=== PATIENT | male | born 1955 | race Caucasian/White ===

== ENCOUNTER → 2017-08-16 | Outpatient (CLI) | payer BC ==
[2013-07-27 18:13] VITALS: BP 126/78
[~2017-08-16] MED LIST: BLOOD PRESSURE; CEPHALEXIN500 M1 PO
[2017-08-16 10:35] LABS: HEMATOCRIT 43.2 % (42.0-52.0); HEMOGLOBIN 14.4 g/dL (13.5-18.0); MEAN PLATELET VOLUME 9.4 fl (7.4-10.4); RED BLOOD COUNT 4.92 M/mm3 (4.20-5.60); RED CELL DISTRIBUTION WIDTH 13.6 % (11.5-14.5); WHITE BLOOD COUNT 8.3 K/mm3 (4.8-10.8)
[2017-08-16 10:51] LABS: ALBUMIN 4.3 g/dL (3.5-5.0); BUN/CREATININE RATIO 15.7 (6.0-26.0); CALCIUM 9.5 mg/dL (8.4-10.2); POTASSIUM 4.1 mmol/L (3.6-5.0); TOTAL BILIRUBIN 0.8 mg/dL (0.2-1.3); TOTAL PROTEIN 7.5 g/dL (6.3-8.2)
== END ==
LOC: LAB 10:25
PROVIDERS: Family Medicine
DX: I10 Essential (primary) hypertension (principal)

== ENCOUNTER → 2018-08-28 | Outpatient (CLI) | payer BC ==
[2013-07-27 18:13] VITALS: BP 126/78
[2018-08-28 07:31] LABS: HEMATOCRIT 44.4 % (42.0-52.0); HEMOGLOBIN 14.9 g/dL (13.5-18.0); MEAN PLATELET VOLUME 9.5 fl (7.4-10.4); RED BLOOD COUNT 5.07 M/mm3 (4.20-5.60); RED CELL DISTRIBUTION WIDTH 13.5 % (11.5-14.5); WHITE BLOOD COUNT 7.8 K/mm3 (4.8-10.8)
[2018-08-28 07:55] LABS: ALBUMIN 4.4 g/dL (3.5-5.0); CALCIUM 9.2 mg/dL (8.4-10.2); POTASSIUM 3.8 mmol/L (3.6-5.0); TOTAL BILIRUBIN 0.7 mg/dL (0.2-1.3); TOTAL PROTEIN 7.6 g/dL (6.3-8.2)
== END ==
LOC: LAB 07:18
PROVIDERS: Family Medicine
DX: I10 Essential (primary) hypertension (principal); N40.0 Benign prostatic hyperplasia without lower urinary tract symptoms

== ENCOUNTER → 2019-11-05 | Outpatient (CLI) | payer MEDICARE, BC ==
[2013-07-27 18:13] VITALS: BP 126/78
[2019-11-05 08:30] LABS: ALBUMIN 4.2 g/dL (3.4-4.8); POTASSIUM 3.8 mmol/L (3.5-5.1)
[2019-11-05 08:33] LABS: TOTAL PROTEIN 7.3 g/dL (6.2-8.1)
[2019-11-05 08:34] LABS: TOTAL BILIRUBIN 0.7 mg/dL (0.2-1.2)
[2019-11-05 08:39] LABS: HEMATOCRIT 44.1 % (42.0-52.0); HEMOGLOBIN 14.3 g/dL (13.5-18.0); MEAN PLATELET VOLUME 10.3 fl (7.4-10.4); RED BLOOD COUNT 4.95 M/mm3 (4.20-5.60); WHITE BLOOD COUNT 6.8 K/mm3 (4.8-10.8)
== END ==
LOC: LAB 07:42
PROVIDERS: Family Medicine
DX: Z00.00 Encounter for general adult medical examination without abnormal findings (principal); I10 Essential (primary) hypertension; E74.39 Other disorders of intestinal carbohydrate absorption; N40.0 Benign prostatic hyperplasia without lower urinary tract symptoms; R73.02 Impaired glucose tolerance (oral)

== ENCOUNTER → 2020-02-12 | Outpatient (CLI) | payer MEDICARE, BC ==
[2013-07-27 18:13] VITALS: BP 126/78
== END ==
LOC: LAB 08:34
DX: E11.9 Type 2 diabetes mellitus without complications (principal)

== ENCOUNTER → 2020-03-10 | Outpatient (CLI) | payer MEDICARE, BC ==
[2013-07-27 18:13] VITALS: BP 126/78
[2020-03-10 12:21] LABS: HEMATOCRIT 41.9 % (42.0-52.0); HEMOGLOBIN 13.5 g/dL (13.5-18.0); MEAN PLATELET VOLUME 8.8 fl (7.4-10.4); RED BLOOD COUNT 4.69 M/mm3 (4.20-5.60); RED CELL DISTRIBUTION WIDTH 14.3 % (11.5-14.5); WHITE BLOOD COUNT 8.4 K/mm3 (4.8-10.8)
[2020-03-10 12:31] LABS: ALBUMIN 4.1 g/dL (3.4-4.8); POTASSIUM 4.4 mmol/L (3.5-5.1)
[2020-03-10 12:32] LABS: CALCIUM 9.4 mg/dL (8.3-10.5)
[2020-03-10 12:33] LABS: TOTAL PROTEIN 7.7 g/dL (6.2-8.1)
[2020-03-10 12:35] LABS: TOTAL BILIRUBIN 0.5 mg/dL (0.2-1.2)
== END ==
LOC: LAB 12:13
PROVIDERS: Family Medicine
DX: Z00.00 Encounter for general adult medical examination without abnormal findings (principal); I10 Essential (primary) hypertension; N40.0 Benign prostatic hyperplasia without lower urinary tract symptoms; E74.39 Other disorders of intestinal carbohydrate absorption

== ENCOUNTER → 2020-05-22 | Outpatient (CLI) | payer MEDICARE, BC ==
[2013-07-27 18:13] VITALS: BP 126/78
[2020-05-22 15:28] LABS: EOS # 0.1 (0.04-0.40); EOS % 0.9 % (0.0-4.0); HEMATOCRIT 41.3 % (42.0-52.0); HEMOGLOBIN 13.5 g/dL (13.5-18.0); LYMPH# 1.6 (1.50-4.00); MEAN CELL VOLUME 88 fl (78-100); MEAN CORPUSCULAR HEMOGLOBIN 29 pg (27-31); MEAN CORPUSCULAR HGB CONC 33 g/dL (33-37); MONO # 1.4 (0.20-0.80); PLATELET COUNT 215 K/mm3 (130-400); RED BLOOD COUNT 4.67 M/mm3 (4.20-5.60); RED CELL DISTRIBUTION WIDTH 14.4 % (11.5-14.5)
[2020-05-22 15:29] LABS: URINE APPEARANCE CLEAR; URINE BILIRUBIN NEGATIVE (NEGATIVE); URINE BLOOD TRACE (NEGATIVE); URINE COLOR YELLOW; URINE KETONE NEGATIVE (NEGATIVE); URINE LEUKOCYTE ESTERASE NEGATIVE (NEGATIVE); URINE NITRATE NEGATIVE (NEGATIVE); URINE PROTEIN(semi-quant) NEGATIVE (NEGATIVE); URINE UROBILINOGEN NORMAL (NORMAL)
[2020-05-22 15:29] LABS: NEU # 9.7 (1.40-6.50)
[2020-05-22 15:39] LABS: ALBUMIN 4.1 g/dL (3.4-4.8)
[2020-05-22 15:40] LABS: CALCIUM 9.6 mg/dL (8.3-10.5)
[2020-05-22 15:41] LABS: TOTAL PROTEIN 7.5 g/dL (6.2-8.1)
[2020-05-22 15:43] LABS: TOTAL BILIRUBIN 0.3 mg/dL (0.2-1.2)
== END ==
LOC: LAB 15:14
PROVIDERS: Physician Assistant
DX: R30.0 Dysuria (principal)

== ENCOUNTER → 2020-09-17 | Outpatient (CLI) | payer MEDICARE, BC ==
[2013-07-27 18:13] VITALS: BP 126/78
== END ==
LOC: LAB 07:53
DX: R97.20 Elevated prostate specific antigen [PSA] (principal)

== ENCOUNTER → 2021-01-27 | Outpatient (CLI) | payer MEDICARE, BC ==
[2013-07-27 18:13] VITALS: BP 126/78
== END ==
LOC: RAD 09:55
DX: M19.011 Primary osteoarthritis, right shoulder (principal)

== ENCOUNTER → 2021-02-03 | Outpatient (CLI) | payer MEDICARE, BC ==
[2013-07-27 18:13] VITALS: BP 126/78
[2021-02-03 10:04] LABS: BASO # 0.04 (0.02-0.10); EOS % 2.5 % (0.0-4.0); HEMATOCRIT 43.8 % (42.0-52.0); HEMOGLOBIN 14.7 g/dL (13.5-18.0); LYMPH# 2.18 (1.50-4.00); MEAN CELL VOLUME 88 fl (78-100); MEAN CORPUSCULAR HEMOGLOBIN 30 pg (27-31); MEAN CORPUSCULAR HGB CONC 34 g/dL (33-37); MEAN PLATELET VOLUME 9.4 fl (7.4-10.4); MONO # 0.84 (0.20-0.80); NEU # 4.69 (1.40-6.50); PLATELET COUNT 192 K/mm3 (130-400); RED BLOOD COUNT 4.99 M/mm3 (4.20-5.60); RED CELL DISTRIBUTION WIDTH 13.2 % (11.5-14.5)
[2021-02-03 10:13] LABS: ALBUMIN 4.3 g/dL (3.4-4.8)
[2021-02-03 10:16] LABS: TOTAL PROTEIN 7.4 g/dL (6.2-8.1)
[2021-02-03 10:18] LABS: TOTAL BILIRUBIN 0.8 mg/dL (0.2-1.2)
[2021-02-03 22:06] LABS: CREATININE OTHER SOURCE 7 mg/dL (())
== END ==
LOC: LAB 07:27
PROVIDERS: Family Medicine
DX: Z00.00 Encounter for general adult medical examination without abnormal findings (principal); Z12.5 Encounter for screening for malignant neoplasm of prostate; E11.9 Type 2 diabetes mellitus without complications; E78.5 Hyperlipidemia, unspecified

== ENCOUNTER → 2021-03-22 | Outpatient (CLI) | payer MEDICARE, BC | LOC: RAD 15:51 | DX: S46.011A Strain of muscle(s) and tendon(s) of the rotator cuff of right shoulder, initial encounter (principal) ==

== ENCOUNTER → 2021-04-05 | Outpatient (CLI) | payer MEDICARE, BC | LOC: PT 08:20 | DX: M25.511 Pain in right shoulder (principal) ==

== ENCOUNTER 2021-04-19 11:00 | Outpatient (RCR) | payer MEDICARE, BC | END 2021-07-18 | disposition home or self-care (01) | LOC: PT | DX: Z98.890 Other specified postprocedural states (principal) ==

== ENCOUNTER → 2021-09-23 | Outpatient (CLI) | payer MEDICARE, BC | LOC: LAB 11:40 | DX: R97.20 Elevated prostate specific antigen [PSA] (principal) ==

== ENCOUNTER → 2021-10-29 | Outpatient (CLI) | payer MEDICARE, BC | LOC: LAB 08:45 | DX: R97.20 Elevated prostate specific antigen [PSA] (principal) ==

== ENCOUNTER → 2022-02-25 | Outpatient (CLI) | payer MEDICARE, BC ==
[2022-02-25 11:38] LABS: BASO # 0.03 K/mm3 (0.02-0.10); EOS % 5.4 % (0.0-4.0); HEMATOCRIT 43.9 % (42.0-52.0); HEMOGLOBIN 14.4 g/dL (13.5-18.0); LYMPH# 1.72 K/mm3 (1.50-4.00); MEAN CELL VOLUME 89 fl (78-100); MEAN CORPUSCULAR HEMOGLOBIN 29 pg (27-31); MEAN CORPUSCULAR HGB CONC 33 g/dL (33-37); MEAN PLATELET VOLUME 9.5 fl (7.4-10.4); MONO # 0.74 K/mm3 (0.20-0.80); NEU # 4.46 K/mm3 (1.40-6.50); PLATELET COUNT 169 K/mm3 (130-400); RED BLOOD COUNT 4.96 M/mm3 (4.20-5.60); RED CELL DISTRIBUTION WIDTH 13.8 % (11.5-14.5); WHITE BLOOD COUNT 7.4 K/mm3 (4.8-10.8)
[2022-02-25 11:45] LABS: POTASSIUM 4.2 mmol/L (3.5-5.1)
[2022-02-25 11:47] LABS: ALBUMIN 4.4 g/dL (3.4-4.8)
[2022-02-25 11:49] LABS: TOTAL PROTEIN 7.5 g/dL (6.2-8.1)
[2022-02-25 11:51] LABS: TOTAL BILIRUBIN 0.5 mg/dL (0.2-1.2)
[2022-02-25 11:57] LABS: MAGNESIUM 2.27 mg/dL (1.60-2.60)
== END ==
LOC: LAB 11:18
PROVIDERS: Family Medicine
DX: Z00.00 Encounter for general adult medical examination without abnormal findings (principal); E78.5 Hyperlipidemia, unspecified; E11.9 Type 2 diabetes mellitus without complications; I10 Essential (primary) hypertension; N40.0 Benign prostatic hyperplasia without lower urinary tract symptoms; E66.9 Obesity, unspecified; M19.90 Unspecified osteoarthritis, unspecified site; L40.9 Psoriasis, unspecified; H93.13 Tinnitus, bilateral; E83.42 Hypomagnesemia; Z85.038 Personal history of other malignant neoplasm of large intestine

== ENCOUNTER → 2022-05-16 | Day surgery (SDC) | payer MEDICARE, BC | LOC: MSO 08:43 | DX: Z12.11 Encounter for screening for malignant neoplasm of colon (principal); Z86.16 Personal history of COVID-19 | CPT/HCPCS: G0121; 00812; J2704; J7120 ==

== ENCOUNTER → 2022-10-06 | Outpatient (CLI) | payer MEDICARE | LOC: LAB 10:16 | DX: R97.20 Elevated prostate specific antigen [PSA] (principal) ==

== ENCOUNTER → 2023-10-10 | Outpatient (CLI) | payer MEDICARE | LOC: LAB 10:13 | DX: R97.20 Elevated prostate specific antigen [PSA] (principal) ==

== ENCOUNTER → 2023-10-25 | Outpatient (CLI) | payer MEDICARE ==
[2023-10-25 11:22] LABS: BASO # 0.03 K/mm3 (0.02-0.10); EOS # 0.16 K/mm3 (0.04-0.40); EOS % 2.1 % (0.0-4.0); HEMATOCRIT 45.4 % (42.0-52.0); HEMOGLOBIN 14.9 g/dL (13.5-18.0); LYMPH# 1.79 K/mm3 (1.50-4.00); MEAN CELL VOLUME 90 fl (78-100); MEAN CORPUSCULAR HEMOGLOBIN 29 pg (27-31); MEAN CORPUSCULAR HGB CONC 33 g/dL (33-37); MEAN PLATELET VOLUME 9.3 fl (7.4-10.4); MONO # 0.66 K/mm3 (0.20-0.80); PLATELET COUNT 210 K/mm3 (130-400); RED BLOOD COUNT 5.07 M/mm3 (4.20-5.60); WHITE BLOOD COUNT 7.8 K/mm3 (4.8-10.8)
[2023-10-25 11:26] LABS: ALBUMIN 4.5 g/dL (3.4-4.8); SODIUM 140 mmol/L (136-145)
[2023-10-25 11:27] LABS: CALCIUM 9.7 mg/dL (8.3-10.5)
[2023-10-25 11:28] LABS: GLUCOSE 119 mg/dL (75-110)
[2023-10-25 11:29] LABS: TOTAL PROTEIN 7.8 g/dL (6.2-8.1)
[2023-10-25 11:30] LABS: CARBON DIOXIDE 24 mmol/L (23-31); TOTAL BILIRUBIN 0.4 mg/dL (0.2-1.2)
[2023-10-25 11:34] LABS: AST-SGOT 19 U/L (5-34)
[2023-10-25 11:35] LABS: ALT/SGPT 20 U/L (0-55)
[2023-10-25 11:46] LABS: TROPONIN-I < 0.030 ng/mL (0.00-0.033)
== END ==
LOC: LAB 11:07
PROVIDERS: Nurse Practitioner
DX: R07.89 Other chest pain (principal)

== ENCOUNTER → 2024-04-08 | Outpatient (CLI) | payer MEDICARE ==
[2024-04-08 08:43] LABS: BASO # 0.04 K/mm3 (0.02-0.10); EOS # 0.24 K/mm3 (0.04-0.40); EOS % 2.8 % (0.0-4.0); HEMATOCRIT 41.8 % (42.0-52.0); HEMOGLOBIN 13.8 g/dL (13.5-18.0); LYMPH# 2.18 K/mm3 (1.50-4.00); MEAN CELL VOLUME 90 fl (78-100); MEAN CORPUSCULAR HEMOGLOBIN 30 pg (27-31); MEAN CORPUSCULAR HGB CONC 33 g/dL (33-37); MEAN PLATELET VOLUME 9.6 fl (7.4-10.4); MONO # 0.81 K/mm3 (0.20-0.80); NEU # 5.22 K/mm3 (1.40-6.50); PLATELET COUNT 187 K/mm3 (130-400); RED BLOOD COUNT 4.65 M/mm3 (4.20-5.60); RED CELL DISTRIBUTION WIDTH 13.3 % (11.5-14.5); WHITE BLOOD COUNT 8.5 K/mm3 (4.8-10.8)
[2024-04-08 08:47] LABS: ALBUMIN 4.2 g/dL (3.4-4.8)
[2024-04-08 08:48] LABS: CALCIUM 9.5 mg/dL (8.3-10.5)
[2024-04-08 08:50] LABS: TOTAL PROTEIN 7.3 g/dL (6.2-8.1)
[2024-04-08 08:52] LABS: TOTAL BILIRUBIN 0.6 mg/dL (0.2-1.2)
== END ==
LOC: LAB 08:21
PROVIDERS: Family Medicine
DX: I10 Essential (primary) hypertension (principal); E11.9 Type 2 diabetes mellitus without complications

== ENCOUNTER → 2024-10-21 | Outpatient (CLI) | payer MEDICARE | LOC: LAB 12:12 | DX: N40.0 Benign prostatic hyperplasia without lower urinary tract symptoms (principal) ==